=== PATIENT | male | born 1990 | race Caucasian/White ===

== ENCOUNTER 2020-10-27 17:59 | Emergency (ER) | payer SELFPAY ==
[~2020-10-27] VITALS: Ht 175.3 cm; Wt 78.0 kg
[2020-10-27 19:55] VITALS: BP 124/68
== END 2020-10-27 21:05 | disposition left against medical advice (07) ==
LOC: ER 18:00
DX: M79.606 Pain in leg, unspecified (principal); Z53.21 Procedure and treatment not carried out due to patient leaving prior to being seen by health care provider